=== PATIENT | female | born 1935 | race Caucasian/White ===

== ENCOUNTER 2019-03-22 11:35 | Inpatient (IN) | payer OTHER ==
[~2019-03-22] VITALS: Ht 160 cm; Wt 59.9 kg
[~2019-03-22 11:35] MED LIST: PROZAC 10 MG CA10 MG PO
[2019-03-22 11:36] VITALS: BP 179/97
[2019-03-22 12:16] LABS: ABSOLUTE NEUTROPHILS 4.9 thou/uL (1.4-8.2); BASOPHILS 0.8 % (0.0-2.0); EOSINOPHILS 0.9 % (0.0-3.0); HEMATOCRIT 41.6 % (37.0-47.0); HEMOGLOBIN 13.7 gm/dL (12.0-15.0); LYMPHOCYTES 21.7 % (24.0-44.0); MCH 29.2 pg (26.0-34.0); MCV 88.4 fL (80.0-100.0); PLATELET COUNT 169 thou/uL (150-400); POLYS 70.6 % (36.0-66.0); RBC 4.71 mil/uL (4.20-5.00); RDW 16.3 % (10.5-14.5)
[2019-03-22 12:16] LABS: URINE BILIRUBIN NEGATIVE (Negative); URINE BLOOD NEGATIVE (Negative); URINE CLARITY CLEAR; URINE COLOR YELLOW; URINE GLUCOSE-RANDOM* NEGATIVE (Negative); URINE KETONES NEGATIVE (Negative); URINE LEUKOCYTES-REFLEX NEGATIVE (Negative); URINE NITRITE-REFLEX NEGATIVE (Negative); URINE PROTEIN (DIPSTICK) NEGATIVE (Negative); URINE SPECIFIC GRAVITY 1.015 (1.005-1.035); URINE UROBILINOGEN 0.2 E.U./dl (0.2-1.0)
[2019-03-22 12:26] LABS: CALCIUM 9.7 mg/dL (8.5-10.1); CREATININE 1.2 mg/dL (0.6-1.0); POTASSIUM 4.2 mmol/L (3.5-5.1)
[2019-03-22 12:28] LABS: AMP/METHAMP Negative (Negative); BARBITURATES Negative (Negative); BENZODIAZEPINES Negative (Negative); COCAINE Negative (Negative); METHADONE Negative (Negative); OPIATES Negative (Negative); PCP Negative (Negative)
--- NOTE | 2019-03-22 12:34 | NUR ---
The patient's called on 03/21/19 and asked to meet with this screen writer, as he has concerns about his . He stated that he needed help with her, he is afraid to leave her alone, as he does not know what she will do. The patient's , the patient, Liyah the marketing community liaison and I met. Laverne is exoeriencing memory problems. She is paranoid. Laverne mojica a former house keeper from [place], [place] is in her current residence. Laverne mojica this house keeper is spying on her and stealing items from her. Laverne sleeps with her purse, due to the paranoia that the house keeper is stealing things from her. Dr. Springer interviewed the patient and her . All are in agreement that Laverne needs to be inpatient on the [facility] unit. Dr. Springer spoke with the ER physician. Once Laverne is medically cleared, she will be admitted.
[2019-03-22 13:05] VITALS: BP 146/98
[2019-03-22] MEDS ORDERED: FLONASE 0.05%50 MCG NARES (13:58)
[2019-03-22 15:11] VITALS: BP 172/99
--- NOTE | 2019-03-22 16:01 | NUR ---
PT ADMITTED TO UNIT FOR PARANOID BEHAVIOR. PT BROUGHT TO UNIT VIA W/C BUT AMBULATES AD BOLA. PT STATES THAT SHE VOLUNTARILY CAME TO UNIT TO EASE HER 'S FEARS THAT SHE IS "CRAZY". PT STATES THAT SOMEONE HAS BEEN COMING TO HER HOUSE AND MOVING HER THINGS AROUND AND STEALING THINGS. B/P ELEVATED AT 172/99. PT STATES SHE IS "NERVOUS" ABOUT HER STAY. PT INDEPENDENT WITH ADLs. ALL CONSENTS REVIEWED AND SIGNED. PT ORIENTED TO UNIT. SKIN ASSESSMENT REVEALS NO ABNORMALITIES AT THIS TIME. PT CALM, COOPERATIVE WITH CLEAR SPEECH PATTERN ET ABLE TO FOLLOW LINE OF QUESTIONING. REVIEW OF QUESTIONS WITH SPOUSE REVEALS THAT PATIENT ANSWERED APPROPRIATELY ALL QUESTIONS POSED TO HER ON ADMISSION. WILL CONTINUE TO MONITOR PER PROTOCOL.
[2019-03-22 19:35] VITALS: BP 125/58
--- NOTE | 2019-03-23 06:06 | NUR ---
1900- Report received from day shift nurse. She was notably confused in the evening, thought she was here one night already and educated that she just arrived here today. She thought she had seen clothes of hers on the shelf in her room and they were not there now, wanting help finding them. She was explained she had only one set of clothes with her and she then understood. She asked for magazines to read and given some. She was asked if she could leave soon, educated where she was and why. She was notably soon comfortable with her room, had no c.o. voiced, had a bm today, made her needs known and slept well all nite tonight, total of 6 hours.
--- NOTE | 2019-03-23 07:30 | NUR ---
PT WALKING AROUND UNIT AND STANDING BY NURSING DESK. PT WANTING TO USE THE PHONE. PT STEADY ON FEET. PT DENIES ANY PAIN.
[2019-03-23 09:32] VITALS: BP 145/86; BP 157/64
--- NOTE | 2019-03-23 09:39 | EKG ---
[place] [address] [address] [facility] [place] [address] ELECTROCARDIOGRAM REPORT Name: TAINA MONTEZT Amira Room #: 527A-A ADM IN M.R.#: [id number] Admission: 03/22/19 Attend Phys: Prashanth Springer DO Discharge: Date of : 31 Report #: [id number] THIS REPORT FOR: //name// [facility] ED Test Date: 2019-03-22 Test Time: 12:17:23 Pat Name: JA MONTEZ Department: Room: [facility] Gender: F Rate Quoting Operator: NICOLE : 1935 Requested By: Dee Villeda Order Number: [id number] MD: Jacinto Ruiz Measurements Intervals [place] Rate: 74 P: 11 VT: 158 QRS: 43 QRSD: 92 T: 31 QT: 391 QTc: 434 Interpretive Statements Sinus rhythm Normal tracing No previous ECG available for comparison Electronically Signed On 03-23-2019 9:39:19 [employer]PERVIS[employer] by Jacinto Ruiz [email or web address] <ELECTRONICALLY SIGNED> By: Jacinto Ruiz MD, [facility] 03/23/19 0939 1217 1217 Jacinto Ruiz MD, FACC /EPI
--- NOTE | 2019-03-23 10:50 | NUR ---
PT LEFT, PT DECIDED THAT HIS NEEDS TO STAY TO BE EVALUATED. PT HUGGED HER AND WISHED HIM WELL.
[2019-03-23 11:12] VITALS: BP 145/86
--- NOTE | 2019-03-23 11:24 | NUR ---
SW met with spouse after he spoke with Dr Springer and is aksing to d/c her home. SW explored reasons and he stated he did not think that this was therapeutic for her at this time. His d/c plan was to take her home and " see how she does". He will rely on the resources in his [facility] and will take his spouse to memeory care at [facility] " if needed" He provided the phone number to the MANAGER MERCHANDISE Bhakti [place] who visits the SNF in his communinty and this was given to Dr Edmond. He called and left a VM for the MANAGER MERCHANDISE. Pt's spouse reported that this MANAGER MERCHANDISE had prescribedmedication in the past that " calmed her down" and also suggested int psych months ago. MIRTHA educated pt 's spouse on the AMA and he was prepared to do this. There is a PCP follow up in May with Dr Rodriguez at .
--- NOTE | 2019-03-23 12:43 | NUR ---
Nutrition: Assessed due to low BMI 17.9 kg/m2 per 101# wt. Admit: paranoia. Hx: anxiety, depression, hx kidney CA s/p nephrectomy. Visited with pt and spouse in day area. Pt states living in a facility that prepares meals for them. She does complain about "lack of protein portions" where they resides. States "I've studied nutrition." RD ensured pt she will receive very adequate protein amounts here; i.e. 2 eggs, at least 3 oz meat portions, plus opportunity to add on additional protein sides such as peanut butter, yogurt, cottage cheese, etc to fully meet/exceed needs. Denied nutrition intervention needs or education. No weight loss or appetite concerns, likely naturally a thinner "petite" frame. Ate 100% of 1 recorded meal so far. Low risk.
--- NOTE | 2019-03-23 14:08 | NUR ---
Yesterday, MIRTHA spoke with pt's Nilay and acquired some background. He said much of pt's paranoia began a year ago after she broke her back. She used to love to sew, but now she constantly rummages through her purse and makes accusations that someone has been in it. Pt has never smoked, drank alcohol, or done street drugs. She has no medical issues and no allergies. Nilay reports up to a year ago pt was very healthy. Pt's DPOA is her son Juan Pablo Biswas [phone]. Both pt and Nilay live in [facility] in the independent living side and he says it is the plan for her to return. He is asking that psych team help with pt's paranoia and helping her calm down. SW team will continue to follow pt during his stay.
--- NOTE | 2019-03-23 16:30 | NUR ---
PT WAS TELLING THIS MBA INTERN THAT SHE HAD TAKEN A LITTLE PILL BEFORE A FEW MONTHS AGO AND MADE HER FEEL LIKE A ZOMBIE IN THE EVENING. PT WANTING TO MAKE SURE SHE IS NOT GOING TO BE TAKING THAT MED. PT HAS MED SHEET AND GAVE PT A INFO SHEET ABOUT RISPIRADONE THAT SHE WILL TAKE TONIGHT. PT ACCEPTANCE OF MED.
[2019-03-23 17:21] LABS: FOLIC ACID 18.2 ng/mL (8.6-58.9); TSH 0.919 uIU/mL (0.358-3.740)
[2019-03-23 20:23] VITALS: BP 150/83
--- NOTE | 2019-03-23 22:15 | H ---
[facility] [place] [address] HISTORY AND PHYSICAL Name: JA MONTEZ Room #: 527A-A ADM IN M.R.#: [id number] Admission: 03/22/19 Attend Phys: Prashanth Springer DO Discharge: Date of : 31 Report #: [id number] THIS REPORT FOR: //name// CC: Prashanth Springer [facility] DATE OF SERVICE: 03/22/2019 INPATIENT PSYCHIATRIC EVALUATION ATTENDING PHYSICIAN: Prashanth Springer DO. BRICK OFF BEARER: Feliciano Lewis MD REASON FOR ADMISSION: Paranoia, disorganization, self-care failure, and inability for to manage the patient. HISTORY OF PRESENT ILLNESS: This is an 83-year-old female, initially seen in [facility], the nurse managers office for triage for geriatric psychiatry services. The patient and her stated they lived in the area about 7 months previously from [place], [place]. The patient has become fixated that her sewing machines are being taken away and vandalized. Per note, her has a girlfriend who is still into her things like her sewing machine. She denied SI, HI. She was initially oppsed to admission and we discussed the options. Apparently, about 3 weeks ago, the patient had a neuropsychological evaluation at [facility], which found no dementia. She had been resistant to coming here previously, but I guess we got francisca today, came with her . PAST MEDICAL HISTORY: Left-sided nephrectomy for renal cell carcinoma. She is generally well otherwise. ALLERGIES: To PENICILLIN. SOCIAL HISTORY: Denies tobacco, alcohol or recreational drug use. REVIEW OF SYSTEMS: From the ER: CONSTITUTIONAL: Denies fever or chills. EYES: Denies blurry vision. ENT: Denies runny nose or sore throat. CARDIOVASCULAR: Denies chest pain. RESPIRATORY: Denies shortness of breath. GASTROINTESTINAL: Denies abdominal pain. GENITOURINARY: Denies dysuria or hematuria. MUSCULOSKELETAL: Denies joint pain. [facility] [address] [place] [address] HISTORY AND PHYSICAL Name: JA MONTEZ Room #: 527A-A ADM IN ..#: [id number] Admission: 03/22/19 Attend Phys: Prashanth Springer DO Discharge: Date of : 31 Report #: [id number] SKIN: Denies rash. NEUROLOGIC: Denies focal weakness. VITAL SIGNS: Today, pulse ox 99%, BP 179/94, pulse rate 81, respirations 18, weight 46.72 kilos. Physical exam grossly normal. IMAGING STUDIES: EKG, sinus rhythm at 74, low voltage in extremity leads. LABORATORY DATA: Today: White count 7.0, H and H 11.6 and 34, platelet count 169. Chemistry: Sodium 140, potassium 4.2, chloride 106, bicarbonate 30, anion gap 4, creatinine 1.2, calcium 9.7. Toxicology: Alcohol less than 10. UDS negative. Urinalysis negative. PHYSICAL EXAM: Normal gait and station. The patient does have chronic left foot swelling. MENTAL STATUS EXAMINATION: This is a well-developed female, appearing stated age. Attention limited. Concentration limited. Speech is normal in rate, volume and tone. Mood and affect congruent, constricted. Insight limited. Judgment limited. Fund of knowledge below average. FORMULATION: An 83-year-old female, brought by for medical and psychiatric evaluation. Patient was diagnosed with dementia during outpatient consult at [facility] about 2 months ago. DIAGNOSIS: Major neurocognitive disorder. The patient has been refusing home meds. I would like to see how her behavior is overnight. Likely purusue antipsychotic therpay initially. Time spent on interview, review of records, coordination of care for this patient in the ER is approximately 45 minutes. STRENGTHS: She is insured, supportive family. WEAKNESSES: Advancing age, having neurodegenerative disorder. <ELECTRONICALLY SIGNED> By: Prashanth Springer DO 03/23/19 2215 1656 1909 Prashanth Springer DO /nt
--- NOTE | 2019-03-24 03:14 | NUR ---
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 SHE GARY STANDING OUTSIDE THE ROOM OF A CONFUSED PEER WHO WAS CRYING OUT, AND C/O OF HER BEHAVIOR. DIRECTED TO GO SIT IN DAYROOM WHERE SHE COULDN'T HEAR THIS PEER. GROSSLY CONFUSED, ASKING SAME QUESTIONS REPEATEDLY. SHOWERED THIS EVENING. MOOD QUITE LABILE, BECOMING ANGRY REGARDING CONSTRUCTION IN HER RESTROOM (SAFETY FEATURES), AND THE BEHAVIORS OF PEERS WANDERING THE HALLS. REASSURED THAT SHE IS SAFE HERE. EASILY REDIRECTABLE. NO PHYSICAL C/O. NO APPARENT DISTRESS. WILL CONTINUE TO MONITOR
[2019-03-24 07:22] VITALS: BP 132/81
[2019-03-24 09:22] VITALS: BP 132/81
--- NOTE | 2019-03-24 11:52 | NUR ---
Sw completed the SLUMS with this pt. She scored 13/30 and reported that her memory was impaired because she had a " mild headache". Pt was pleasant and eager to please.
--- NOTE | 2019-03-24 16:48 | NUR ---
Pt pleasant et cooperative this shift. Room change occurred this morning to move patient closer to nurses' station et to allow her to room with a peer that she has befriended. Pt socializes with peer while ambulating the halls most of the day. Bright affect et personable when questioned. Pt denies SI/HI at present time. Pt ate all meals et took medications without difficulty. Spouse brought change of clothes et pt changed. When asked if she wanted her dirty clothes washed, pt stated that she usually hand washes them so she will just pack them away to be taken home when she leaves. Pt occasionally participated in groups. Will continue to monitor per protocol.
[2019-03-24 20:10] VITALS: BP 118/54
--- NOTE | 2019-03-25 04:50 | NUR ---
ASSUMED CARE OF PT AT 1900HRS. PT IS UP AD BOLA WITH A STEADY GAIT. PT WAS CALM AND COOPERATIVE THIS SHIFT. PT TOOK ALL PM MEDS WHOLE WITH WATER. NO NOTEABLE EVENT THIS SHIFT. PT WAS ABLE TO SLEEP PART OF THE SHIFT. VSS AND NO S/S OF ACUTE DISTRESS. WILL CONTINUE TO MONITOR.
[2019-03-25 07:50] VITALS: BP 108/88
--- NOTE | 2019-03-25 14:57 | NUR ---
Has been up calm and cooperative, she had complaints of epigastric pain this a.m. and requested "half an aspirin" when asking why she stated she heard if you were having a heart attack you have to take aspirin. Assessed further and found she has pepcid and mylanta as prn, which was given due to no other symptoms of heart issues, she ate well today, and has been buddied up with her room mate, somewhat confused with disorganized speech at times, she denies SI/HI and AVH. Continue to monitor for safety and behaviors.
[2019-03-25 20:00] VITALS: BP 162/92
--- NOTE | 2019-03-26 04:43 | NUR ---
1909-Report received from day shift nurse and care assumed. She was sitting in the day room and her room this evening, worried about other peers trying to help them. She was notably more anxious as the evening progressed, pacing,restless,confused at times repeating questions/comments. At 2200 she was given Seroquel 50 mg. po prn for anxiety and it was helpful as went to sleep soon and has rested sound all nite.
[2019-03-26 07:44] VITALS: BP 144/78
[2019-03-26 08:00] VITALS: BP 144/78
--- NOTE | 2019-03-26 08:30 | NUR ---
PT SITTING NEXT TO ANOTHER PT THAT WAS WORRIED AND WANTING TO COMFORT HER. PT LUNGS CLEAR. PT HAS EDEMA TO ANKLES AND FEET, APPLIED PALLAVI HOSE. PT STATED THEY ARE HARD TO GET ON HER SELF. PT UP AD BOLA.
[2019-03-26 19:52] VITALS: BP 139/61
--- NOTE | 2019-03-27 05:39 | NUR ---
1909-Report received from day shift nurse. She was cooperative and medication compliant. She talked about a past medication she used to take that made her head feel pressured, which she did not like. She was calm, with a bright affect and slept sound.
[2019-03-27 08:02] VITALS: BP 160/76
--- NOTE | 2019-03-27 09:26 | NUR ---
ASSUMED CARE OF PATIENT AT 0715 ON 03/27/19. PATIENT IN BATHROOM GETTING READY FOR BREAKFAST. PATIENT STATES "I DID NOT SLEEP WELL" WHEN ASKED WHY PATIENT SAYS TWO PEOPLE TRIED COMING IN ROOM LAST NIGHT. PATIENT SAYS SHE PUT CHAIR AGAINST DOOR TO LISTEN IF ANYONE COMES IN. SLEEP HOURS REPORTED WERE 5.6 NO COMPLAINTS OF PAIN, DENIES SI/HI AND AVH. PATIENT STATES GOAL FOR TODAY IS "EAT BREAKFAST THEN TAKE A NAP". SITS IN DAYROOM FOR BREAKFAST WITH OTHER PATIENTS AND COMMUNICATES WELL WITH OTHERS.
[2019-03-27 10:40] VITALS: BP 119/68
[2019-03-27 20:25] VITALS: BP 141/75
--- NOTE | 2019-03-28 03:45 | NUR ---
Assumed pt care @1915. pt a&ox4. pt pleasant and cooperstive. always trying to help her roommate. no concerns overnight. pt slept good with little interruptions. pt placed a chair behind her door to keep anyone that is not suppose to come in, get in. no s/s of distress noted. will cont to monitor
[2019-03-28 10:31] VITALS: BP 144/84
--- NOTE | 2019-03-28 10:56 | NUR ---
0649 REPORT RECEIVED FROM OVERNIGHT SHIFT, PATIENT IS ALERT CALM COOPERATIVE. PATIENT ATE BREAKFAST AND TOOK MEDICATION WITHOUT INCIDENCE. PATIENT EDEMA IN BOTH FEET HAS GONE DOWN SIGNIFIVANTLY. PATIENT PARTICPATES IN GROUPS, WE WILL CONTINUE TO MONITOR PATIENT FOR SAFETY.
--- NOTE | 2019-03-28 12:08 | NUR ---
MIRTHA met with laura and Dr page at the family meeting and it was determind that this pt will return home with her spouse today at 3;30pm. Mirtha attempted to find the number for the [facility] [phone] but there are not any staff to provide this information today. But pt's pouse knows how to contact them when they ar [facility] on Fridays and is in contact with Bhakti Cuba NP
[2019-03-28 12:11] VITALS: BP 144/84
[2019-03-28] MEDS ORDERED: FLONASE 0.05%50 MCG NASAL (13:40)
[2019-03-28] MEDS ORDERED: RISPERIDONE 00.25 M1 PO ×2 (13:40)
--- NOTE | 2019-03-31 14:31 | D ---
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 Additional comorbidities include acute kidney injury, ____ right lower extremity edema, deep venous thrombosis ruled out. Incidental 1 cm right upper lung pulmonary nodule. Imaging recommended by PCP. The patient's aftercare, she sees Denisha Reyes geriatric nurse practitioner. The patient lives with her in an independent living prior to this admission. REASON FOR ADMISSION: The patient brought by to the hospital, actually as a walk-in intake and she was very paranoid, guarded, sewingmaterials were being taken. Her was befriending another woman - themes such as this. HOSPITAL COURSE: The patient was admitted to Geriatric Psychiatry Unit. The patient manifested fairly intense delusions early on and started her on risperidone titrated from 0.25 b.i.d. to 0.5 at bedtime, 0.25 in the morning. The intensity of her paranoid and persecutory delusions markedly decreased. She had a family meeting prior to discharge, discussed my recommendation for the patient and her for somewhat different reasons. They want to stay now for the time being. The patient's biological son was present for family meeting. No indications at present for ongoign psychiatric hospitalization. The patient understands the 24-hour assistance and supervision is required. The now is 88 years old; however, they say age is just a number. CONDITION AT DISCHARGE: Stable. PHYSICAL EXAMINATION: VITAL SIGNS: On the day of discharge, temperature 36.7, pulse 75, respirations 18, BP 144/84. LABORATORY DATA: Significant laboratories this admission, CBC was grossly [facility] [address] [place] [address] DISCHARGE SUMMARY Name: JA MONTEZ Room #: 527A-A [facility] IN [facility]#: [id number] Admission: 03/22/19 Attend Phys: Prashanth Springer DO Discharge: 03/28/19 Date of : 31 Report #: [id number] normal. Chemistries other than the acute kidney injury, B12 is 716, folate 18.2, TSH 0.919. Urinalysis negative. Urine drug screen was negative. MENTAL STATUS EXAMINATION: This is a well-developed female wearing glasses, appearing stated age. Attention fair. Concentration fair. Speech normal rate volume tone . Thought process is linear and goal directed. Though content focused on discharge. No psychomotor agitation, no psychomotor retardation. Mood and affect congruent, euthymic, fair range. Denied SI or HI. Denied hopelessness, helplessness. Memory not formally tested. Insight fair. Judgment limited. Fund of knowledge, no greater than average. PROGNOSIS: For this patient is fair to guarded, will depend on the aggressiveness of the dementia process as well as support she gets. <ELECTRONICALLY SIGNED> By: Prashanth Springer DO 03/31/19 1431 0549 0732 Prashanth Springer DO /nt
== END 2019-03-28 16:33 | disposition home or self-care (01) | DRG 884 ==
LOC: ER 11:35 → SBH 13:07
PROVIDERS: Student in an Organized Health Care Education/Training Program; ADMIT Psychiatry & Neurology Psychiatry
DX: F01.50 Vascular dementia, unspecified severity, without behavioral disturbance, psychotic disturbance, mood disturbance, and anxiety (principal); N17.9 Acute kidney failure, unspecified; F32.9 Major depressive disorder, single episode, unspecified; F22 Delusional disorders; F29 Unspecified psychosis not due to a substance or known physiological condition; F41.9 Anxiety disorder, unspecified; J30.2 Other seasonal allergic rhinitis; R91.1 Solitary pulmonary nodule; Z85.528 Personal history of other malignant neoplasm of kidney; Z88.0 Allergy status to penicillin; Z90.5 Acquired absence of kidney; Z90.710 Acquired absence of both cervix and uterus
CPT/HCPCS: 10880